=== PATIENT | male | born 1990 | race Caucasian/White ===

== ENCOUNTER 2023-01-21 18:17 | Emergency (ER) | payer OTHER ==
[~2023-01-21] VITALS: Ht 175.3 cm; Wt 113.9 kg
[2023-01-21 21:19] VITALS: BP 125/75
== END 2023-01-21 21:20 | disposition home or self-care (01) ==
LOC: ED 18:17
DX: G43.109 Migraine with aura, not intractable, without status migrainosus (principal)
CPT/HCPCS: 99283